=== PATIENT | female | born 1990 | race Caucasian/White ===

== ENCOUNTER 2021-07-02 01:50 | Inpatient (IN) ==
[2021-07-02] MEDS: Lactated Ringers 1000 ml BAG 1,000 ML IV ONE ×2 (04:15→04:57)
[2021-07-02 04:25] LABS: Hematocrit 35 % (35-47); Hemoglobin 11.6 g/dL (12.0-16.0); Mean Corpuscular HGB Conc 33 g/dL (31-36); Mean Corpuscular Hemoglobin 30 pg (27-31); Mean Corpuscular Volume 91 fL (80-97); Mean Platelet Volume 9.4 fL (7.4-10.4); Platelet Count 288 10^3/uL (150-450); Red Blood Count 3.87 10^6 /uL (3.70-4.87); Red Cell Distribution Width 15 % (10-15); White Blood Count 18.9 10^3/uL (3.5-10.8)
[2021-07-02] MEDS ORDERED: OBEPIDURAL 250 ML EPIDURAL ONE (04:32)
[2021-07-02 05:11] LABS: ABS Eosinophils 0.1 10^3/ul (0-0.6); ABS Lymphocytes 2.7 10^3/ul (1.0-4.8); ABS Monocytes 1.4 10^3/ul (0-0.8); ABS Neutrophils 14.6 10^3/ul (1.5-7.7); Eosinophil % 0.7 %; Lymphocyte % 14.3 %
[2021-07-02 05:12] LABS: Rapid COVID-19 Molecular Undetected (Undetected)
[2021-07-02] MEDS ORDERED: Lactated Ringers 1000 ml BAG 500 ML IV PRN (05:21)
[2021-07-02] MEDS ORDERED: Sodium Citrate/Citric Acid LIQ 15 ML UDC PO PRN (05:21)
[2021-07-02] MEDS ORDERED: Lactated Ringers 1000 ml BAG 1,000 ML IV ONE (05:21)
[2021-07-02] MEDS ORDERED: Phenylephrine 40 mcg/mL 10mL (400mcg) SYRINGE IV PUSH PRN ×2 (05:21)
[2021-07-02] MEDS ORDERED: EPHEDrine (Pressors) 50 MG/ML VIAL IV PUSH PRN ×2 (05:21)
[2021-07-02] MEDS ORDERED: Lactated Ringers 1000 ml BAG 1,000 ML IV SCH ×3 (06:00→19:00)
[2021-07-02] MEDS ORDERED: OBEPIDURAL 250 ML EPIDURAL SCH (06:00)
[2021-07-02] MEDS: Oxytocin in LR 20 UNITS/1,000 ML BAG IVPB SCH ×2 (07:00→18:54)
[2021-07-02 07:02] LABS: Urine Benzodiazepine Screen None Detected (None Detect); Urine Cannabinoids Screen None Detected (None Detect); Urine Opiates Screen None Detected (None Detect)
[2021-07-02 07:05] LABS: Urine Appearance Clear; Urine Bilirubin Negative (Negative); Urine Blood Negative (Negative); Urine Color Yellow; Urine Glucose Negative (Negative); Urine Ketones Trace (Negative); Urine Nitrite Negative (Negative); Urine Protein Negative (Negative); Urine Specific Gravity 1.013 (1.002-1.030); Urine Urobilinogen Negative (Negative)
[2021-07-02] MEDS ORDERED: ceFOXitin 2 GM IVPREMIX 2 GM/50 ML BAG ONE (15:31)
[2021-07-02] MEDS ORDERED: Sodium Citrate/Citric Acid LIQ 15 ML UDC ONE (15:32)
[2021-07-02] MEDS ORDERED: Lidocaine 2% w/ EPI 1:200,000 MPF 20 ML SDV VIAL ONE ×2 (15:35→15:38)
[2021-07-02] MEDS ORDERED: Dexamethasone IV 4 MG/ML VIAL 1 ml VIAL ONE (15:36)
[2021-07-02] MEDS ORDERED: Oxytocin 10 UNITS/ML 1 ML VIAL ONE (15:36)
[2021-07-02] MEDS ORDERED: Ondansetron 4 mg VIAL 2 MG/ML 2 ml VIAL ONE (15:36)
[2021-07-02] MEDS ORDERED: Phenylephrine 40 mcg/mL 10mL (400mcg) SYRINGE ONE (15:36)
[2021-07-02] MEDS ORDERED: fentaNYL 100 mcg/2 ml 50 MCG/ML VIAL ONE (15:37)
[2021-07-02] MEDS ORDERED: Morphine PF AMP (0.5MG/ML) 5 MG/10 ML AMP ONE (16:38)
[2021-07-02] MEDS ORDERED: diPHENhydraMINE IV 50 MG/ML 1 ml VIAL (BENADRYL) IV PRN (17:17)
[2021-07-02] MEDS ORDERED: DiMENhydriNATE IV 50 mg/ml 1 ml VIAL IV PUSH PRN (17:17)
[2021-07-02] MEDS ORDERED: Ondansetron 4 mg VIAL 2 MG/ML 2 ml VIAL IV PRN (17:17)
[2021-07-02] MEDS ORDERED: Naloxone 0.4 mg VIAL 0.4 mg/ml 1 ml VIAL IV PRN (17:17)
[2021-07-02] MEDS ORDERED: Acetaminophen IV 1 GM/100ML 100 ML IV PRN (17:18)
[2021-07-02] MEDS ORDERED: Acetaminophen IV 1 GM/100ML 100 ML IV ONE (17:37)
[2021-07-02] MEDS ORDERED: Witch Hazel PAD JAR TOPICAL PRN (18:25)
[2021-07-02] MEDS ORDERED: Glycerin ADULT 2.4 gm SUPP PR PRN (18:25)
[2021-07-02] MEDS ORDERED: Dibucaine 1% OINT 28.35 GM TUBE PR PRN (18:25)
[2021-07-02] MEDS ORDERED: Oxytocin in LR 20 UNITS/1,000 ML BAG IVPB SCH (19:00)
[2021-07-02] MEDS ORDERED: Lidocaine 1% VIAL 10 MG/ML VIAL ONE (19:33)
[2021-07-03 06:47] LABS: Hematocrit 28 % (35-47); Hemoglobin 9.5 g/dL (12.0-16.0); Mean Corpuscular HGB Conc 34 g/dL (31-36); Mean Corpuscular Hemoglobin 31 pg (27-31); Mean Corpuscular Volume 92 fL (80-97); Mean Platelet Volume 9.6 fL (7.4-10.4); Platelet Count 241 10^3/uL (150-450); Red Blood Count 3.09 10^6 /uL (3.70-4.87); Red Cell Distribution Width 15 % (10-15); White Blood Count 23.6 10^3/uL (3.5-10.8)
[2021-07-03 06:59] LABS: ABS Eosinophils 0.1 10^3/ul (0-0.6); ABS Lymphocytes 3.1 10^3/ul (1.0-4.8); ABS Neutrophils 18.4 10^3/ul (1.5-7.7); Eosinophil % 0.6 %; Lymphocyte % 13.1 %
[2021-07-05 08:14] VITALS: BP 127/70
== END 2021-07-05 18:00 | disposition home or self-care (01) | DRG 788 ==
LOC: MCHOBOUT 01:50 → MCHOB 02:54
PROVIDERS: ADMIT Midwife; ATTEND Obstetrics & Gynecology

== ENCOUNTER 2023-10-09 16:48 | Inpatient (IN) ==
[2023-10-09 19:24] LABS: ABS Basophils 0.1 10^3/uL (0.0-0.1); ABS Eosinophils 0.3 10^3/uL (0.0-0.5); ABS Lymphocytes 3.5 10^3/uL (1.0-4.8); ABS Monocytes 1.4 10^3/uL (0.0-0.9); ABS Neutrophils 15.6 10^3/uL (1.5-7.6); ABS Nucleated RBC 0.01 10^3/ul; Eosinophil % 1.3 %; Hematocrit 37.5 % (35-45); Hemoglobin 12.9 g/dL (11.5-14.3); Lymphocyte % 16.9 %; Mean Corpuscular Hemoglobin 30.9 pg (27-33); Mean Corpuscular Hgb Conc 34.4 g/dL (31-36); Mean Corpuscular Volume 89.7 fL (80-97); Mean Platelet Volume 10.4 fL (7.5-11.2); Nucleated Red Blood Cells % 0.1 %/100WBC (0.0-0.8); Platelet Count 319 10^3/uL (150-450); Red Blood Count 4.18 10^6/uL (3.63-4.92); Red Cell Distribution Width 14.2 % (12-17); White Blood Count 20.9 10^3/uL (3.8-11.8)
[2023-10-09] MEDS: Sodium Citrate/Citric Acid LIQ 15 ML UDC PO ONE (19:38)
[2023-10-09] MEDS: Lactated Ringers 1000 ml BAG 1,000 ML IV SCH (19:39)
[2023-10-09] MEDS: Lactated Ringers 1000 ml BAG 1,000 ML IV ONE (19:39)
[2023-10-09] MEDS ORDERED: Dexamethasone IV 4 MG/ML VIAL 1 ml VIAL ONE (19:44)
[2023-10-09] MEDS ORDERED: Ondansetron 4 mg VIAL 2 MG/ML 2 ml VIAL ONE (19:44)
[2023-10-09] MEDS ORDERED: Metoclopramide 5 MG/ML VIAL (10 mg) ONE (19:44)
[2023-10-09] MEDS ORDERED: Morphine PF AMP (0.5MG/ML) 5 MG/10 ML AMP ONE (19:44)
[2023-10-09] MEDS ORDERED: Oxytocin 10 UNITS/ML 1 ML VIAL ONE (19:44)
[2023-10-09] MEDS: ceFAZolin 2 GM PREMIX 2 GM/50 ML BAG IV ONE (19:58)
[2023-10-09] MEDS ORDERED: Bupivacaine-MPF SPINAL 7.5 MG/ML - 2ML AMP ONE (20:09)
[2023-10-09 20:16] LABS: Urine Benzodiazepine Screen None Detected (None Detect); Urine Cannabinoids Screen None Detected (None Detect); Urine Opiates Screen None Detected (None Detect)
[2023-10-09] MEDS: Azithromycin 500 mg/250 ml NS 500 MG/250 ML BAG IVPB ONE (20:29)
[2023-10-09] MEDS: ceFAZolin 2 GM PREMIX 2 GM/50 ML BAG ONE (20:36)
[2023-10-09] MEDS: ceFOXitin 2 GM IVPREMIX 0 GM/0 ML BAG ONE (20:36)
[2023-10-09] MEDS: Sodium Citrate/Citric Acid LIQ 15 ML UDC ONE (20:36)
[2023-10-09] MEDS: Buffered Lidocaine 1% SYRIN 1 ml INTRADERM ONE (20:36)
[2023-10-09] MEDS: Oxytocin in LR 20,000 MILLI.UNIT/1,000 ML BAG IV SCH (20:40)
[2023-10-09] MEDS ORDERED: Ondansetron 4 mg VIAL 2 MG/ML 2 ml VIAL IV PRN (21:16)
[2023-10-09] MEDS ORDERED: Naloxone 0.4 mg VIAL 0.4 mg/ml 1 ml VIAL IV PUSH PRN (21:16)
[2023-10-09] MEDS ORDERED: Acetaminophen IV 1 GM/100ML 1,000 MG/100 ML BAG IV PRN (21:16)
[2023-10-09] MEDS ORDERED: fentaNYL 100 mcg/2 ml 50 MCG/ML VIAL IV PRN (21:18)
[2023-10-09] MEDS ORDERED: Naloxone 0.4 mg VIAL 0.4 mg/ml 1 ml VIAL IV PRN (21:18)
[2023-10-09 21:49] LABS: Urine Appearance Clear; Urine Bilirubin Negative (Negative); Urine Blood Negative (Negative); Urine Color Light-Yellow; Urine Glucose Negative (Negative); Urine Ketones Negative (Negative); Urine Nitrite Negative (Negative); Urine Protein Negative (Negative); Urine Urobilinogen Negative (Negative); Urine pH 7.5 (5.0-8.0)
[2023-10-09] MEDS ORDERED: Witch Hazel PAD JAR TOPICAL PRN (22:02)
[2023-10-09] MEDS ORDERED: Dibucaine 1% OINT 28.35 GM TUBE PR PRN (22:02)
[2023-10-09] MEDS ORDERED: Glycerin ADULT 2.4 gm SUPP PR PRN (22:02)
[2023-10-09] MEDS ORDERED: Lactated Ringers 1000 ml BAG 1,000 ML IV SCH (23:00)
[2023-10-10 06:59] LABS: Hematocrit 30.6 % (35-45); Hemoglobin 10.2 g/dL (11.5-14.3); Mean Corpuscular Hgb Conc 33.4 g/dL (31-36); Mean Corpuscular Volume 89.8 fL (80-97); Mean Platelet Volume 9.4 fL (7.5-11.2); Platelet Count 282 10^3/uL (150-450); Red Blood Count 3.41 10^6/uL (3.63-4.92); Red Cell Distribution Width 14.1 % (12-17); White Blood Count 26.2 10^3/uL (3.8-11.8)
[2023-10-10 08:25] LABS: ABS Eosinophils 0.1 10^3/uL (0.0-0.5); ABS Lymphocytes 3.1 10^3/uL (1.0-4.8); ABS Monocytes 2.2 10^3/uL (0.0-0.9); ABS Neutrophils 20.8 10^3/uL (1.5-7.6); Eosinophil % 0.2 %
[2023-10-11 08:24] VITALS: BP 114/68
== END 2023-10-11 13:15 | disposition home or self-care (01) | DRG 788 ==
LOC: MCHOBOUT 16:48 → MCHOB 18:53
PROVIDERS: ADMIT Obstetrics & Gynecology; ATTEND Obstetrics & Gynecology